=== PATIENT | female | born 1970 | race Caucasian/White ===

== ENCOUNTER → 2021-06-06 07:44 | Outpatient (CLI) | payer BC, SELFPAY ==
--- NOTE | ~2021-06-06 | US_ITS ---
EXAMINATION: US abdomen limited DATE: 06/06/2021 08:16 INDICATION: Abnormal liver enzymes TECHNIQUE: Multiple grayscale and Doppler ultrasound images of the abdomen were obtained. COMPARISON: 01/09/2017 FINDINGS: The head, body, and tail of the pancreas are normal. The liver demonstrates increased echog enicity, heterogenous echotexture, and decreased through transmission. No surface nodularity. Normal hepatopetal flow in the main portal vein. The gallbladder is normal with no abnormal wall thickening, pericholecystic fluid or stones. The normal common bile duct measures 6 mm. There was no sonographic Benitez sign. IMPRESSION: 1. Diffuse hepatic steatosis. Reviewed, dictated and finalized at location A.
== END ==
PROVIDERS: PCP Family Medicine; Visit Provider Physician Assistant
DX: R74.8 Abnormal levels of other serum enzymes (principal); K76.0 Fatty (change of) liver, not elsewhere classified
CPT/HCPCS: 76705

== ENCOUNTER → 2021-06-27 13:51 | Outpatient (CLI) | payer BC, SELFPAY ==
--- NOTE | ~2021-06-27 | CT_ITS ---
EXAMINATION:CT lung screening DATE: 06/27/2021 14:07 INDICATION: Personal history of nicotine dependence. Smoker who quit 10 years ago with 30 pack year h istory. TECHNIQUE: Computed tomography (CT) of the chest was performed without intravenous contrast. Automate d exposure control and iterative reconstruction technique were employed. The dose-length product (DLP ) was 181.11 mGy-cm. COMPARISON: None. FINDINGS: There is mild scarring at the lung apices. There is mild emphysema. There is mild atelectas is bilaterally. No pleural effusion. There are nodules in the thyroid measuring up to 18 mm. The hear t size is normal. No pericardial effusion. There is diffuse hepatic steatosis. There is severe lower thoracic spondylosis. IMPRESSION: 1. Lung-RADS category 2: Benign appearance or behavior. Continue annual screening with noncontrast lo w-dose chest CT in 12 months. 2. Multinodular goiter. Consider thyroid ultrasound for risk stratification. Reviewed, dictated and finalized at location A. IMPRESSION: 1. Lung-RADS category 2: Benign appearance or behavior. Continue annual screeni ng with noncontrast low-dose chest CT in 12 months. 2. Multinodular goiter. Consider thyroid ultrasound for risk stratification.
== END ==
PROVIDERS: PCP Family Medicine; Visit Provider Family Medicine
DX: Z12.2 Encounter for screening for malignant neoplasm of respiratory organs (principal); Z87.891 Personal history of nicotine dependence; E04.2 Nontoxic multinodular goiter
CPT/HCPCS: 71271

== ENCOUNTER → 2023-07-07 09:06 | Outpatient (CLI) | payer BC, SELFPAY ==
--- NOTE | ~2023-07-07 | CT_ITS ---
EXAMINATION: CT lung screening DATE: 07/07/2023 09:20 INDICATION: Personal history of nicotine dependence, current smoker with 40 pack year history TECHNIQUE: Computed tomography (CT) of the chest was performed without intravenous contrast. The dose -length product (DLP) was 111.60 mGy-cm. Automated exposure control and iterative reconstruction tech zintin were employed. COMPARISON: 06/27/2021 FINDINGS: There is mild emphysema. The lungs are free of acute opacities. No pleural effusion or pneu mothorax. No pulmonary nodules are identified. No pathologically enlarged thoracic lymph nodes are id entified. The heart size is normal. Multinodular goiter is again noted. There is severe thoracic spon dylosis. IMPRESSION: 1. Lung-RADS category 1: Negative. Continue annual screening with noncontrast low-dose chest CT in 12 months. Reviewed, dictated and finalized at location L. IMPRESSION: 1. Lung-RADS category 1: Negative. Continue annual screening with noncontrast l ow-dose chest CT in 12 months.
== END ==
PROVIDERS: PCP Family Medicine; Visit Provider Family Medicine
DX: Z12.2 Encounter for screening for malignant neoplasm of respiratory organs (principal); Z87.891 Personal history of nicotine dependence
CPT/HCPCS: 71271

== ENCOUNTER 2023-08-26 10:18 | Outpatient (CLI) | payer BC, SELFPAY ==
--- NOTE | 2023-08-31 15:58 | WPDHOLTEREM ---
Holter/Event Monitor Holter/Event Monitor Date of procedure: 08/26/23 Holter/Event Procedure: 48 Hr Holter Monitor Indications: Syncope Conclusion: 1. 48 hour holter monitor on 08/26/23. 2. Underlying rhythm is sinus rhythm. HR range 52-120 bpm; average HR 67 bpm. 3. There are 73 premature supraventricular complexes and 1 supraventricular couplet. No surpaventricular tachycardia. 4. There are 18 premature ventricular complexes. No ventricular tachycardia. 5. No sinoatrial or atrioventricular blocks. No significant pauses greater than 2 seconds. 6. No symptoms available for correlation.
== END 2023-08-26 10:19 | disposition home or self-care (01) ==
LOC: ANHIMG 10:19 → ANHCARD 10:24
PROVIDERS: PCP Family Medicine; Visit Provider Physician Assistant
DX: R55 Syncope and collapse (principal); R94.31 Abnormal electrocardiogram [ECG] [EKG]
CPT/HCPCS: 93225; 93226